=== PATIENT | male | born 1955 | race Caucasian/White ===

== ENCOUNTER 2022-02-23 10:12 | Emergency (ER) | payer OTHER, SELFPAY ==
[2022-02-23 10:28] VITALS: BP 135/66; PULSE 86; RESP 18; TEMP 36.8; O2SAT 98; BMI 38.7
[2022-02-23 13:21] VITALS: BP 172/78; PULSE 77; RESP 20; TEMP 36.5; O2SAT 99
--- NOTE | 2022-02-23 14:20 | ED.GENADULT ---
HPI - General Adult General Chief complaint: Skin/Abscess/Foreign Body Stated complaint: abscess on back of neck Time Seen by Provider: 02/23/22 13:18 History of Present Illness HPI narrative: This patient is a 66-year-old male who comes in with a large painful swelling on the posterior aspect of his neck. He states that this is been present for about a month and is getting worse. He has had difficulty sleeping over the past couple days. He did go to urgent care yesterday where he received an antibiotic and has started taking it as prescribed. The provider there did not want to drain for fear of bleeding. He does not report any fevers. Related Data Home Medications Medication Instructions Recorded Confirmed atorvastatin 40 mg tablet mg 02/23/22 dapagliflozin 10 mg tablet mg 02/23/22 (Farxiga) gabapentin 300 mg capsule mg 02/23/22 insulin glargine 100 unit/mL (3 unit subcut 02/23/22 mL) subcutaneous pen (Basaglar KwikPen U-100 Insulin) lisinopril 20 tab 02/23/22 mg-hydrochlorothiazide 12.5 mg tablet metformin 1,000 mg tablet mg 02/23/22 sulfamethoxazole 800 tab 02/23/22 mg-trimethoprim 160 mg tablet Previous Rx's Medication Instructions Recorded tramadol 50 mg tablet 50 mg PO Q6H PRN pain #20 tabs 02/23/22 Allergies Allergy/AdvReac Type Severity Reaction Status Date / Time No Known Drug Allergies Allergy Verified 02/23/22 13:45 Review of Systems Status of ROS: Reports: 10 or more systems reviewed and unremarkable except as noted in History and below Narrative: Constitutional: No fevers, no weight gain or loss. Eyes: No discharge. No vision changes. HENT: No congestion, no sore throat, no ear pain. Cardiovascular: No chest pain, no palpitations. Respiratory: No shortness of breath, no wheezes, no cough. Gastrointestinal: No abdominal pain, no vomiting, no diarrhea. Genitourinary: No dysuria, no hematuria. Musculoskeletal: Normal range of motion. Skin: No rashes, no pruritis. Large painful swelling in the posterior neck typical of an abscess. Neurological: No dizziness, weakness, sensory change, speech change. Endo/Heme/Allergies: No bruising or bleeding. No polydipsia. Pysch: no suicidality, no anxiety, no insomnia. All other systems reviewed and are negative. PFSH PFS Social History Smoking Status: Never smoker How often do you have a drink containing alcohol: never AUDIT-C Alcohol total score: 0 Non-prescribed substance use: denies use Exam Narrative: Exam Narrative: Constitutional: Well-developed, well-nourished, no acute distress. HEENT: Normocephalic, atraumatic. Neck: Normal range of motion. Supple. Posterior neck has swelling with erythema and pain typical of an abscess. This is just left of midline. Heart: Regular. No murmurs. Normal rate. Intact distal pulses. Lungs: Clear to auscultation. No chest discomfort. No wheezes, rhonchi, or rales. Abdomen: Normal bowel sounds. Nontender. No rebound tenderness. Genitalia: Deferred. Back: No midline tenderness. Normal range of motion. Extremities: Normal range of motion. No injury. Skin: Intact. No rash. Warm. No erythema or pallor. Neurologic: No altered sensation. No weakness. Alert and oriented. Psychiatric: No suicidality. No anxiety or depression. No insomnia. Nursing notes and vitals signs are reviewed. Const: Vital Signs, click to edit/add: Vital Signs - 24 hr 02/23/22 10:28 02/23/22 13:21 Temperature 98.2 F 97.7 F Pulse Rate [Right Pulse Oximeter] 86 77 Respiratory Rate 18 20 Blood Pressure [Ri ght Upper Arm] 135/66 172/78 H Pulse Oximetry 98 99 Oxygen Delivery Me thod Room Air Room Air Course Vital Signs Vital signs: Initial Vital Signs Temperature 98.2 F 02/23/22 10:28 Temperature Source Temporal Artery Scan 02/23/22 10:28 Pulse Rate 86 02/23/22 10:28 Respiratory Rate 18 02/23/22 10:28 Blood Pressure 135/66 02/23/22 10:28 Blood Pressure Mean 89 02/23/22 10:28 Blood Pressure Position Sitting 02/23/22 10:28 Pulse Oximetry 98 02/23/22 10:28 Oxygen Delivery Method 02/23/22 10:28 Vital Signs Temperature 98.2 F 02/23/22 10:28 Pulse Rate 86 02/23/22 10:28 Respiratory Rate 18 02/23/22 10:28 Blood Pressure 135/66 09/06/22 10:28 Pulse Oximetry 98 02/23/22 10:28 Oxygen Delivery Method 02/23/22 10:28 Temperature 97.7 F 02/23/22 13:21 Pulse Rate 77 02/23/22 13:21 Respiratory Rate 20 02/23/22 13:21 Blood Pressure 172/78 H 02/23/22 13:21 Pulse Oximetry 99 02/23/22 13:21 Oxygen Delivery Method 02/23/22 13:21 Medical Decision Making MDM Narrative Medical decision making narrative: This patient has a rather large 6 cm diameter swelling that is painful in the posterior neck. I discussed treatment options in addition to the antibiotic that he has already been prescribed and recommended incision and drainage. The patient agrees to this plan. The wound area was cleansed with alcohol. After anesthesia with 1% lidocaine, I used a 11. Blade to incise into the central portion of abscess. There was some drainage of blood along with odorous purulence. I placed iodoform gauze to keep the wound open and this was followed by absorbed of dressing covered by tape. Instructions were given regarding managing this wound. He has a prescription for Bactrim. I did provide prescription for tramadol. He has a follow-up appointment with his primary physician in 6 days. Discharge Plan Discharge Clinical Impression: Abscess of skin or subcutaneous tissue Patient Disposition: Home, Self-Care Condition: Improved Instructions: Abscess (ED), Incision and Drainage (ED) Additional Instructions: Keep iodoform gauze in place for at least a couple days. Take medication as prescribed and needed. Follow up with clinic appointment as scheduled or return if worsening. Prescriptions: New tramadol 50 mg tablet 50 mg PO Q6H PRN (Reason: pain) Qty: 20 0RF No Action atorvastatin 40 mg tablet Label Comments: TAKE 1 TABLET BY MOUTH EVERY DAY lisinopril-hydrochlorothiazide 20-12.5 mg tablet sulfamethoxazole-trimethoprim 800-160 mg tablet metformin 1,000 mg tablet Label Comments: TAKE 1 TABLET BY MOUTH TWICE A DAY gabapentin 300 mg capsule Label Comments: TAKE 3 CAPSULES (900 MG) BY MOUTH DAILY AT BEDTIME. insulin glargine [Basaglar KwikPen U-100 Insulin] 100 unit/mL (3 mL) insulin pen SUBCUT Label Comments: INJECT 60 UNITS SUBCUTANEOUSLY EVERY EVENING. Farxiga 10 mg tablet Label Comments: TAKE 1 TABLET BY MOUTH EVERY DAY Follow Up/Referrals: Provider,Not a Local [Primary Care Provider] - Stand Alone Forms: MyHealth Info Instructions
== END 2022-02-23 14:30 | disposition home or self-care (01) ==
PROVIDERS: Emergency Provider Emergency Medicine Emergency Medical Services
DX: L02.11 Cutaneous abscess of neck (principal)
CPT/HCPCS: 10060; 99284